=== PATIENT | female | born 1995 | race Caucasian/White ===

== ENCOUNTER → 2016-05-13 | Outpatient (CLI) | payer BC ==
[2016-05-13 13:52] LABS: BASO % 0.5 % (0.0-2.0); EOS # 0.1 (0.0-0.7); EOS % 1.5 % (0-4.0); GRAN # 1.8 (1.4-6.5); GRAN % 43.9 % (42.2-75.2); HEMATOCRIT 39.2 % (35.0-45.0); HEMOGLOBIN 13.4 g/dl (12.0-15.0); LYMPH # 1.7 (1.2-3.4); MEAN CELL VOLUME 89 fl (80.0-95.0); MEAN CORPUSCULAR HEMOGLOBIN 30 pg (26.0-32.0); MEAN CORPUSCULAR HGB CONC 34 g/dl (33.0-37.0); MONO # 0.5 (0.1-0.6); MONO % 12.6 % (1.7-9.3); PLATELET COUNT 159 K/mm3 (130-400); RED BLOOD COUNT 4.42 M/mm3 (4.10-5.30); REDCELL DISTRIBUTION WIDTH-CV 11.9 % (11.5-14.5); WHITE BLOOD COUNT 4.1 K/mm3 (4.8-10.8)
[2016-05-13 14:06] LABS: ADJUSTED CALCIUM 8.9 mg/dL (8.4-10.2); ALBUMIN 4.2 gm/dL (3.5-5.0); BILIRUBIN,TOTAL 0.5 mg/dL (0.0-1.0); CALCIUM 9.1 mg/dL (8.4-10.2); CREATININE, serum 0.74 mg/dL (0.52-1.25); POTASSIUM 3.6 mmol/L (3.4-5.0); TOTAL PROTEIN 7.2 gm/dL (6.4-8.2)
== END ==
LOC: COL.LAB 13:21
PROVIDERS: Physician Assistant
DX: B27.90 Infectious mononucleosis, unspecified without complication (principal)

== ENCOUNTER 2022-09-09 10:58 | Outpatient (CLI) | payer OTHER ==
[~2022-09-09] VITALS: Ht 170.2 cm; Wt 80.9 kg
--- NOTE | 2022-09-09 11:10 | NUR ---
Pt arrived on unit ambulatory for scheduled version. Pt denies any contractions, leaking of fluid or vaginal bleeding and reports normal movement. EFM and toco monitors started. Vital signs WNL. Plan of care for version reviewed with pt and at the bedside. Both verbalized an understanding and agreed with the plan.
[2022-09-09] MEDS ORDERED: PRENATAL (11:24)
[2022-09-09 11:45] VITALS: BP 115/69; PULSE 57
--- NOTE | 2022-09-09 12:20 | NUR ---
Dr. Perez and Dr. Bone at the bedside. Terb SQ given. See EMAR for details. Pt off EFM and toco monitor for ECV.
--- NOTE | 2022-09-09 12:27 | NUR ---
ECV not successful. EFM and toco monitors started. Plan of care for continued monitoring for at least an hour. Pt verbalized an understanding and agreed with the plan.
== END 2022-09-09 14:10 | disposition home or self-care (01) ==
LOC: LDRO 10:58
DX: O32.1XX0 Maternal care for breech presentation, not applicable or unspecified (principal); Z3A.37 37 weeks gestation of pregnancy
CPT/HCPCS: J2791; J3105